=== PATIENT | female | born 1985 | race Caucasian/White ===

== ENCOUNTER 2019-05-17 19:29 | Emergency (ER) | payer SELFPAY ==
[2019-05-17] MEDS ORDERED: Penicillin V Potassium 500 MG Tab PO ONE (20:05)
[2019-05-17] MEDS ORDERED: Ketorolac 60 MG/2 ML SDV IM ONE (20:05)
--- NOTE | 2019-05-17 20:23 | EDM.PDOC ---
ED HPI GENERAL MEDICAL PROBLEM - General Chief Complaint: ENT Problem Stated Complaint: TOOTH PAIN Time Seen by Provider: 05/17/19 19:47 Source of Information: Reports: Patient, RN Notes Reviewed History Limitations: Reports: No Limitations - History of Present Illness INITIAL COMMENTS - FREE TEXT/NARRATIVE: Patient is a 33-year-old female who presents to the ED for the evaluation of a dental complaint. The patient states that she has been having upper jaw pain for the last week, she states that the pain is radiating up the side of her face and into her ears. She has been using BC powder, Tylenol and ibuprofen, mouth rinses, and nothing seems to be helping. She has not seen a dentist, she states that she is on a budget so she doesn't have a lot of money. Patient notes that she is a cigarette smoker, she smokes around 5 or 6 cigarettes per day. She states that the pain is intense now that she is sensitive to sounds, and states that she has a small child at home which aggravates this quite a bit. The patient states that she has one med allergy, this is to Keflex, she states that when she was a young child she developed some throat swelling after she took Keflex. Tooth/Teeth Pain Score (Numeric/FACES): 10 - Related Data Allergies Allergy/AdvReac Type Severity Reaction Status Date / Time cephalexin [From Keflex] Allergy Airway Verified 05/17/19 19:54 Tightness Home Meds: Home Meds Naproxen [Naprosyn] 500 mg PO Q12HR #14 tab 05/17/19 [Rx] Penicillin V Potassium 500 mg PO Q6HR #40 tab 05/17/19 [Rx] Past Medical History - Past Health History Medical/Surgical History: Denies Medical/Surgical History Social & Family History - Tobacco Use Smoking Status *Q: Current Every Day Smoker Years of Tobacco use: 13 Packs/Tins Daily: 0.1 ED ROS ENT - Review of Systems Review Of Systems: See Below Constitutional: Denies: Fever, Chills HEENT: Reports: Dental Pain (bilateral upper jaw). Denies: Throat Pain, Throat Swelling Respiratory: Denies: Shortness of Breath Cardiovascular: Denies: Chest Pain Endocrine: Reports: No Symptoms GI/Abdominal: Denies: Abdominal Pain, Nausea, Vomiting : Reports: No Symptoms Musculoskeletal: Reports: No Symptoms Skin: Reports: No Symptoms Neurological: Reports: No Symptoms Psychiatric: Reports: No Symptoms Hematologic/Lymphatic: Reports: No Symptoms Immunologic: Reports: No Symptoms ED EXAM, ENT - Physical Exam Exam: See Below Exam Limited By: No Limitations General Appearance: Alert, WD/WN, No Apparent Distress Eye Exam: Bilateral Eye: EOMI, Normal Inspection, PERRL Ears: Normal External Exam, Normal Canal, Hearing Grossly Normal, Normal TMs Nose: Normal Inspection, Normal Mucousa, No Blood Mouth/Throat: Normal Inspection, Normal Gums, Normal Lips, Normal Oropharynx, Dental Pain (to upper right molar mainly. Dentition is in poor repair, multiple cavities noted to molars that are eroding away.) Head: Atraumatic, Normocephalic Neck: Normal Inspection, Supple, Non-Tender, Full Range of Motion Respiratory/Chest: No Respiratory Distress, Lungs Clear, Normal Breath Sounds, No Accessory Muscle Use, Chest Non-Tender Cardiovascular: Normal Peripheral Pulses, Regular Rate, Rhythm, No Murmur GI/Abdominal: Normal Bowel Sounds, Soft, Non-Tender, No Distention, No Mass Extremities: Normal Inspection, Normal Capillary Refill Neurological: Alert, Oriented, Normal Cognition, No Motor/Sensory Deficits Psychiatric: Normal Affect, Normal Mood Skin: Warm, Dry, Intact, Normal Color, No Rash Course - Vital Signs Last Recorded V/S: Last Vital Signs Temp 97.4 F 05/17/19 19:44 Pulse 65 05/17/19 19:44 Resp 16 05/17/19 19:44 BP 158/98 H 05/17/19 19:44 Pulse Ox 99 05/17/19 19:44 - Orders/Labs/Meds Meds: Medications Discontinued Medications Generic Name Dose Route Start Last Admin Trade Name Juan PRN Reason Stop Dose Admin Ketorolac Tromethamine 60 mg 05/17/19 20:05 05/17/19 20:11 Toradol IM 05/17/19 20:06 60 mg ONETIME ONE Administration Penicillin V Potassium 500 mg 05/17/19 20:05 05/17/19 20:11 Veetids PO 05/17/19 20:06 500 mg ONETIME ONE Administration - Re-Assessments/Exams Free Text/Narrative Re-Assessment/Exam: 05/17/19 20:24 Patient presents to the ED for evaluation of a dental complaint. Due to her above-stated allergy to Keflex, I will give her one dose of penicillin in the ER today, and observe her further short while after administration of make sure she is not having any acute respiratory distress or throat swelling. She was given a 60 mg injection of Toradol for pain relief. We will likely send the patient home with a prescription for some Naprosyn, and penicillin for continuation, she will need to follow-up with the dentist ultimately for management. She is aware of this. 05/17/19 20:36 Patient was observed for about a half hour after she was given the penicillin, if she should have developed any airway swelling and should've happened by now. We'll continue on with the above plan and discharge her home. Departure - Departure Time of Disposition: 20:36 Disposition: Home, Self-Care 01 Condition: Fair Clinical Impression: Pain due to dental caries - Discharge Information *PRESCRIPTION DRUG MONITORING PROGRAM REVIEWED*: No *COPY OF PRESCRIPTION DRUG MONITORING REPORT IN PATIENT KAYLAH: No Prescriptions: Penicillin V Potassium 500 mg PO Q6HR #40 tab Naproxen [Naprosyn] 500 mg PO Q12HR #14 tab Instructions: Diet and Dental Disease Referrals: PCP,None [Primary Care Provider] - Forms: ED Department Discharge Additional Instructions: You have been evaluated in the ED for your dental pain. You have been provided with a script for Penicillin. Please take this medication as directed. (1 tab QID for 10 days or until gone). This antibiotic can cause diarrhea, recommend that you start a probiotic while taking this medication. Aleve provides good pain relief for dental pain. Please take 1-2 tabs twice daily as needed for pain. You may use hot pack/ ice packs to the affected area as tolerated in 15-20 minute intervals. You will ultimately need to find a dentist to provide definitive management of your dental pain. Please return to the ED if your symptoms change or worsen.
== END 2019-05-17 20:52 | disposition home or self-care (01) ==
LOC: JD.ED 19:29
DX: K02.9 Dental caries, unspecified (principal); F17.210 Nicotine dependence, cigarettes, uncomplicated; Z88.1 Allergy status to other antibiotic agents
CPT/HCPCS: 96372; 99282; A9270; J1885; 99283

== ENCOUNTER 2019-10-20 23:09 | Emergency (ER) | payer SELFPAY ==
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
== END 2019-10-20 23:45 ==
LOC: JD.ED 23:09
DX: F10.129 Alcohol abuse with intoxication, unspecified (principal); F17.210 Nicotine dependence, cigarettes, uncomplicated; Z88.8 Allergy status to other drugs, medicaments and biological substances
CPT/HCPCS: 99283; 99284

== ENCOUNTER 2021-11-09 08:23 | Emergency (ER) | payer MEDICAID ==
[2021-11-09] MEDS ORDERED: Clindamycin Phosphate in D5W 900 MG in Premix Bag 1 BAG IV ONE ×2 (08:39)
[2021-11-09] MEDS ORDERED: HYDROmorphone 0.5 MG/0.5 ML Syringe IVPUSH ONE (08:40)
[2021-11-09] MEDS ORDERED: Metoclopramide 10 MG/2 ML SDV IVPUSH ONE (08:40)
[2021-11-09] MEDS ORDERED: Ketorolac 30 MG/ML SDV IVPUSH SCH (08:45)
== END 2021-11-09 09:23 | disposition home or self-care (01) ==
LOC: JD.ED 08:23
DX: K04.7 Periapical abscess without sinus (principal); E66.9 Obesity, unspecified; Z68.35 Body mass index [BMI] 35.0-35.9, adult; Z88.1 Allergy status to other antibiotic agents; Z72.0 Tobacco use
CPT/HCPCS: 96365; 96375; 99282; J1170; J1885; J2765; J3490; 99284

== ENCOUNTER 2023-02-15 09:37 | Emergency (ER) | payer MEDICAID ==
[2023-02-15] MEDS ORDERED: Clindamycin Phosphate in D5W 900 MG in Premix Bag 1 BAG IV ONE ×2 (10:09)
[2023-02-15] MEDS ORDERED: Sodium Chloride 0.9% 10 ML Syringe FLUSH PRN (10:09)
[2023-02-15] MEDS ORDERED: Ketorolac 30 MG/ML SDV IVPUSH ONE (11:05)
== END 2023-02-15 11:18 | disposition home or self-care (01) ==
LOC: JD.ED 09:37
DX: K04.7 Periapical abscess without sinus (principal); F17.210 Nicotine dependence, cigarettes, uncomplicated; E66.9 Obesity, unspecified; Z68.36 Body mass index [BMI] 36.0-36.9, adult; Z88.1 Allergy status to other antibiotic agents
CPT/HCPCS: 96365; 96375; 99282; J1885; J3490